=== PATIENT | female | born 1990 | race Two or more races ===

== ENCOUNTER 2020-05-25 19:20 | Emergency (ER) | payer OTHER ==
[~2020-05-25] VITALS: Ht 157.5 cm; Wt 95.7 kg
[2020-05-25] MEDS ORDERED: PRENATALES (19:36)
== END 2020-05-25 22:54 | disposition home or self-care (01) ==
LOC: ER 19:20
DX: O26.892 Other specified pregnancy related conditions, second trimester (principal); R10.2 Pelvic and perineal pain; D25.9 Leiomyoma of uterus, unspecified; Z34.02 Encounter for supervision of normal first pregnancy, second trimester

== ENCOUNTER 2020-06-05 22:27 | Emergency (ER) | payer OTHER ==
[~2020-06-05] VITALS: Ht 157.5 cm; Wt 99.8 kg
[~2020-06-05 22:27] MED LIST: PRENATALES
[2020-06-06] MEDS ORDERED: PERCOGESIC EXT1 EACH PO (10:23)
[2020-06-06] MEDS ORDERED: KETO10TA2 PO (10:23)
== END 2020-06-06 10:34 | disposition home or self-care (01) ==
LOC: ER 22:27
DX: O23.41 Unspecified infection of urinary tract in pregnancy, first trimester (principal); O34.11 Maternal care for benign tumor of corpus uteri, first trimester; O26.891 Other specified pregnancy related conditions, first trimester; R10.2 Pelvic and perineal pain; Z34.81 Encounter for supervision of other normal pregnancy, first trimester

== ENCOUNTER → 2020-06-25 | Outpatient (CLI) | payer OTHER ==
[~2020-06-25] MED LIST changes: +KETO10TA2 PO; +PERCOGESIC EXT1 EACH PO; +PRENATAL TABLE1 EAC3 PO
== END | disposition home or self-care (01) ==
LOC: PRENATAL 14:30
PROVIDERS: ATTEND Obstetrics & Gynecology Maternal & Fetal Medicine
DX: O35.0XX1 Maternal care for (suspected) central nervous system malformation in fetus, fetus 1 (principal); O26.872 Cervical shortening, second trimester; O34.12 Maternal care for benign tumor of corpus uteri, second trimester; O35.3XX1 Maternal care for (suspected) damage to fetus from viral disease in mother, fetus 1; O98.512 Other viral diseases complicating pregnancy, second trimester; Z36.89 Encounter for other specified antenatal screening; Z3A.19 19 weeks gestation of pregnancy

== ENCOUNTER 2020-06-26 18:11 | Inpatient (IN) | payer OTHER ==
[~2020-06-26] VITALS: Ht 157.5 cm; Wt 93.9 kg
[~2020-06-26 18:11] MED LIST changes: -PRENATAL TABLE1 EAC3 PO
[2020-06-26] MEDS ORDERED: PRENATAL TABLE1 EAC3 PO (19:16)
== END 2020-07-03 16:51 | disposition home or self-care (01) | DRG 831 ==
LOC: LDR 18:11 → OB/GYN 18:11
PROVIDERS: ADMIT Obstetrics & Gynecology; ATTEND Obstetrics & Gynecology
PROC: 4A0HXFZ Measurement of Products of Conception, Cardiac Rhythm, External Approach (ICD-10-PCS; principal; 2020-06-26)
PROC: BY4CZZZ Ultrasonography of Second Trimester, Single Fetus (ICD-10-PCS; 2020-07-02)
DX: O20.0 Threatened abortion (principal); O34.32 Maternal care for cervical incompetence, second trimester; O26.872 Cervical shortening, second trimester; O34.12 Maternal care for benign tumor of corpus uteri, second trimester; Z3A.19 19 weeks gestation of pregnancy; Z20.828 Contact with and (suspected) exposure to other viral communicable diseases

== ENCOUNTER 2020-07-23 17:30 | Inpatient (IN) | payer OTHER ==
[~2020-07-23] VITALS: Ht 157.5 cm; Wt 96.2 kg
== END 2020-08-05 16:50 | disposition designated cancer center or children's hospital (05) | DRG 832 ==
LOC: LDR 17:30 → OB/GYN 07-24 13:59
PROVIDERS: ADMIT Obstetrics & Gynecology; ATTEND Obstetrics & Gynecology
PROC: BY4CZZZ Ultrasonography of Second Trimester, Single Fetus (ICD-10-PCS; principal; 2020-08-02)
DX: O60.02 Preterm labor without delivery, second trimester (principal); O26.872 Cervical shortening, second trimester; O42.912 Preterm premature rupture of membranes, unspecified as to length of time between rupture and onset of labor, second trimester; O34.12 Maternal care for benign tumor of corpus uteri, second trimester; D25.9 Leiomyoma of uterus, unspecified; Z3A.23 23 weeks gestation of pregnancy

== ENCOUNTER → 2020-07-23 | Outpatient (CLI) | payer OTHER ==
[~2020-07-23] MED LIST changes: +PRENATAL TABLE1 EAC3 PO
== END | disposition home or self-care (01) ==
LOC: PRENATAL 14:38
PROVIDERS: ATTEND Obstetrics & Gynecology Maternal & Fetal Medicine
DX: O26.842 Uterine size-date discrepancy, second trimester (principal); O26.872 Cervical shortening, second trimester; O34.12 Maternal care for benign tumor of corpus uteri, second trimester; O35.3XX1 Maternal care for (suspected) damage to fetus from viral disease in mother, fetus 1; O98.512 Other viral diseases complicating pregnancy, second trimester; Z36.89 Encounter for other specified antenatal screening; Z3A.23 23 weeks gestation of pregnancy